=== PATIENT | female | born 1955 | race Caucasian/White ===

== ENCOUNTER 2022-04-20 11:22 | Emergency (ER) | payer MEDICARE, MEDICAID ==
[~2022-04-20] VITALS: Ht 157.5 cm; Wt 59.0 kg
[2022-04-20 11:24] VITALS: BP 130/50
[2022-04-20] MEDS ORDERED: KETOROLAC 15 MG/ML VIAL IM ONE (11:45)
--- NOTE | 2022-04-20 12:00 | NUR ---
PATIENT PRESENTS TO ED WITH FLANK PAIN X 1 DAY . PT STATES SHE HAD 3 EPISODES OF DIARRHEA PRIOR TO COMING TO ED . SKIN IS PINK/WARM/DRY; AAOX4 WITH EVEN AND STEADY GAIT; LUNGS CLEAR BL; HR EVEN AND REGULAR; PT DENIES ANY FEVER, CP, SOB, OR COUGH AT THIS TIME; PATIENT STATES PAIN OF 0/10 AT THIS TIME; VSS; PATIENT POSITIONED FOR COMFORT; HOB ELEVATED; BEDRAILS UP X2; BED DOWN. ER MD MADE AWARE OF PT STATUS.
[2022-04-20 12:08] LABS: BASOPHILS % (AUTO) 0.5 % (0.0-2.0); EOSINOPHILS % (AUTO) 0.1 % (0.0-4.0); HEMATOCRIT 46.1 % (36-48); HEMOGLOBIN 15.3 g/dL (12.0-16.0); MEAN CORPUSCULAR HEMOGLOBIN 31 pg (27-31); MEAN CORPUSCULAR HGB CONC 33 g/dL (33-37); MEAN CORPUSCULAR VOLUME 94.5 fL (80-94); MONOCYTES # (AUTO) 0.4 K/uL (0.8-1.0); MONOCYTES % (AUTO) 4.9 % (1.7-9.3); NEUTROPHILS # (AUTO) 6.9 K/uL (1.8-7.7); NEUTROPHILS % (AUTO) 82.5 % (42.2-75.2); PLATELET COUNT (AUTO) 224 K/uL (140-450); RED BLOOD CELL COUNT(AUTO) 4.88 MIL/uL (4.20-5.40); WHITE BLOOD COUNT (AUTO) 8.4 K/uL (4.8-10.8)
[2022-04-20 12:42] LABS: APPEARANCE,URINE CLEAR (CLEAR); BILIRUBIN,URINE 1+ (NEGATIVE); BLOOD, URINE 3+ (NEGATIVE); COLOR,URINE YELLOW (YELLOW); LEUKOCYTE ESTERASE ,URINE NEGATIVE (NEGATIVE); NITRITE, URINE NEGATIVE (NEGATIVE); UGLUCOSE NEGATIVE (NEGATIVE)
[2022-04-20 12:50] LABS: ALBUMIN 3.5 g/dL (3.4-5.0); ANION GAP 13.6 (8-16); CARBON DIOXIDE 27.6 mmol/L (21-32); CREATININE 0.8 mg/dL (0.6-1.3); POTASSIUM 4.2 mmol/L (3.5-5.1); TOTAL BILIRUBIN 0.7 mg/dL (0.0-1.0)
[2022-04-20 12:59] LABS: RBC,URINE 11-20 (MOD) /HPF (0-5); WBC,URINE 0-5 /HPF (0-5)
[2022-04-20 13:00] LABS: TRICHOMONAS,URINE None Seen /HPF (None Seen); YEAST,URINE None Seen /HPF (None Seen)
[2022-04-20] MEDS ORDERED: TAMS0.4C96 PO (13:29)
[2022-04-20] MEDS ORDERED: NAPR-1704 PO (13:29)
[2022-04-20 14:05] VITALS: BP 129/53
--- NOTE | 2022-04-20 14:06 | NUR ---
Patient discharged with v/s stable. Written and verbal after care instructions given and explained. Patient verbalized understanding. Ambulatory with steady gait. All questions addressed prior to discharge. Advised to follow up with PMD.
== END 2022-04-20 14:05 | disposition home or self-care (01) ==
LOC: MED 11:22
DX: N20.0 Calculus of kidney (principal); R11.0 Nausea; R39.15 Urgency of urination; J43.9 Emphysema, unspecified; F17.200 Nicotine dependence, unspecified, uncomplicated; Z98.890 Other specified postprocedural states; Z79.899 Other long term (current) drug therapy; Z71.6 Tobacco abuse counseling
CPT/HCPCS: 36415; 74176; 80053; 81001; 83690; 85025; 96372; 99284; J1885

== ENCOUNTER 2022-04-22 11:45 | Emergency (ER) | payer MEDICARE, MEDICAID ==
[~2022-04-22] VITALS: Ht 160 cm; Wt 46.7 kg
[~2022-04-22 11:45] MED LIST: NAPR-1704 PO; TAMS0.4C96 PO
[2022-04-22 11:49] VITALS: BP 102/59
--- NOTE | 2022-04-22 11:53 | NUR ---
PT AMBULATED TO LOBBY
--- NOTE | 2022-04-22 12:00 | NUR ---
66/F WALKED IN C/O B/L EAR HEARING IMPAIRMENT ACCOMPANIED BY MUFFLED SOUNDS AND CLOGGED SENSATION INTERMITTENT X 3 WKS. DENIES ANY PAIN OR DISCHARGE. AAO4, AMBULATORY, VITALS STABLE, NO ACUTE DISTRESS NOTED PMH: ASTHMA, COPD
--- NOTE | 2022-04-22 14:18 | NUR ---
PT'S BI-LATERAL EARS IRRIGATED WITH NORMAL SALINE. PA NOTIFIED
--- NOTE | 2022-04-22 15:15 | NUR ---
LEFT PRIOR TO DC
== END 2022-04-22 15:15 | disposition home or self-care (01) ==
LOC: MED 11:45
DX: H61.23 Impacted cerumen, bilateral (principal); H91.93 Unspecified hearing loss, bilateral; J44.9 Chronic obstructive pulmonary disease, unspecified; F17.210 Nicotine dependence, cigarettes, uncomplicated; Z79.899 Other long term (current) drug therapy
CPT/HCPCS: 99281; 99282

== ENCOUNTER 2022-12-28 14:39 | Emergency (ER) | payer MEDICARE, MEDICAID ==
[~2022-12-28] VITALS: Ht 157.5 cm; Wt 46.3 kg
[2022-12-28 15:12] VITALS: BP 121/69; PULSE 84; RESP 20; TEMP 98.5; O2SAT 98
[2022-12-28] MEDS ORDERED: IBUP-2213 PO (18:03)
[2022-12-28] MEDS ORDERED: BROM118S70 PO (18:03)
[2022-12-28] MEDS ORDERED: NIRM1TAB5 PO (18:03)
== END 2022-12-28 18:15 | disposition home or self-care (01) ==
LOC: MED 14:39
DX: U07.1 COVID-19 (principal); J44.9 Chronic obstructive pulmonary disease, unspecified; Z79.899 Other long term (current) drug therapy
CPT/HCPCS: 71045; 99284

== ENCOUNTER 2023-01-02 15:17 | Emergency (ER) | payer MEDICARE, MEDICAID ==
[~2023-01-02] VITALS: Ht 157.5 cm; Wt 45.4 kg
[~2023-01-02 15:17] MED LIST changes: +BROM118S70 PO; +IBUP-2213 PO; +NIRM1TAB5 PO
[2023-01-02 16:10] VITALS: BP 120/66; PULSE 75; RESP 16; TEMP 97.8; O2SAT 100
[2023-01-02 17:42] LABS: FLU A ANTIGEN negative (NEGATIVE); FLU B ANTIGEN negative (NEGATIVE)
[2023-01-02 18:17] VITALS: BP 120/62; PULSE 70; RESP 16; TEMP 97.8; O2SAT 100
== END 2023-01-02 18:18 | disposition home or self-care (01) ==
LOC: MED 15:17
DX: R05.9 Cough, unspecified (principal); Z20.822 Contact with and (suspected) exposure to COVID-19; J44.9 Chronic obstructive pulmonary disease, unspecified; J45.909 Unspecified asthma, uncomplicated; F17.210 Nicotine dependence, cigarettes, uncomplicated; Z79.899 Other long term (current) drug therapy
CPT/HCPCS: 71045; 99284